=== PATIENT | male | born 1925 | race Caucasian/White ===

== ENCOUNTER 2016-10-10 08:10 | Inpatient (IN) | payer OTHER ==
--- NOTE | 2016-10-10 08:14 | PDOC ---
History of Present Illness - General Chief Complaint: Altered Mental Status Stated Complaint: FELL OUT OF BED, AMS Time Seen by Provider: 10/10/16 08:14 History Source: EMS, Old Records Exam Limitations: Clinical Condition, Dementia - History of Present Illness Initial Comments: 10/10/16 08:27 89-year-old male with history of dementia and cholangitis last year presents the emergency department by EMS after a witnessed applied down onto the floor from bed this morning. It is reported that the patient did not hit his head and had no head trauma. However, the patient appears to be altered per family and EMS. Further history from the patient is not obtainable secondary to the patient 's lethargy and altered mental status. The patient does not take anticoagulant therapy or antiplatelet therapy. Per the patient's , the patient has been coughing and has been feeling generalized weakness x 3 days. He also has not been eating well. Past History - Past Medical History Allergies/Adverse Reactions: Allergies Allergy/AdvReac Type Severity Reaction Status Date / Time No Known Allergies Allergy Unverified 10/22/15 09:54 Home Medications: Ambulatory Orders Cyanocobalamin/Folic Acid [Vitamin C21-Uztuo Acid Tablet] 1 each PO AM tablet 10/01/12 Meclizine HCl 25 mg PO PRN tablet 10/01/12 Ca Cmb No.1/Vit D3/B-6/FA/B12 [Vitamin D3 1,000 Unit Tablet] 1 each PO DAILY tablet 02/05/14 Cyanocobalamin [Vitamin B12 -] 1,000 mcg PO DAILY 10/22/15 Iron,Carbonyl/Vit C/Vit B12/FA [Iron 100 Plus Tablet] 325 mg PO DAILY 10/22/15 Anemia: Yes HTN: Yes Psychiatric Problems: (DEMENTIA) - Immunization History Immunization Up to Date: No - Psycho/Social/Smoking Cessation Hx Anxiety: No Suicidal Ideation: No Smoking History: Former smoker Have you smoked in the past 12 months: No Number of Cigarettes Smoked Daily: 0 If you are a former smoker, when did you quit?: 10y Hx Alcohol Use: No Drug/Substance Use Hx: No Substance Use Type: None Review of Systems - Review of Systems Able to Perform ROS?: No Comments:: 10/10/16 08:24 The patient states that everything is bothering him but is unable to elaborate. *Physical Exam - Physical Exam Comments: 10/10/16 08:20 GENERAL: Well developed, well nourished. Lethargic but arousable to verbal stimuli. No acute distress. HEENT: Normocephalic, atraumatic. PERRLA, EOMI. No conjunctival pallor. Sclera are non- icteric. Dry mucous membranes. Oropharynx is clear. NECK: Supple. Full ROM. No JVD. No lymphadenopathy. CARDIOVASCULAR: Regular rate and rhythm. No murmurs, rubs, or gallops. Distal pulses are 2+ and symmetric. PULMONARY: No evidence of respiratory distress. There are crackles at the left lung base. No wheezing, rales or rhonchi. ABDOMINAL: Soft. Non-tender. Non-distended. No rebound or guarding. No organomegaly. Normoactive bowel sounds. MUSCULOSKELETAL Normal range of motion at all joints. No bony deformities or tenderness. No CVA tenderness. There is o skin breakdown inthe decubitus region. EXTREMITIES: No cyanosis. No clubbing. No edema. No calf tenderness. SKIN: Warm and dry. Normal capillary refill. No rashes. No jaundice. NEUROLOGICAL: Awake but lethargic and oriented to person. Exam is incomplete secondary patient compliance/lethargy. PSYCHIATRIC: Unable to assess secondary to altered mental status/lethargy. ED Treatment Course - LABORATORY CBC & Chemistry Diagram: 10/10/16 08:15 10/10/16 08:15 Medical Decision Making - Medical Decision Making 10/10/16 08:24 89 y/o male with h/o cholangitis, dementia who presents to the ED by EMS s/p sliding off of the bed this am and AMS. He is lethargic, febrile to 101.3F and has crackles at the left lung base. DDx includes but is not limited to: PNA, influenza, UTI, sepsis, dehydration, electrolyte abnormality, toxic/metabolic derangement, ACS, intra-cranial process. Plan: 1. Labs 2. Brunson-culture 3. CXR 4. Urine 5. CT head 6. IVF for hydration 7. IV antibiotics 8. EKG 9. Observe and re-evaluate 10. The patient will likely require admission for IV antiibiotics and IVF hydration pending results of above mentioned studies/tests 10/10/16 09:48 Addendum: The labs were reviewed and are noted in the EMR. CT head and chest x- ray are negative. The labs are significant for a white blood cell count of 11.4. The urine has positive nitrites and leukoesterase. Will admit the patient to medicine monitored bed. *DC/Admit/Observation/Transfer Diagnosis at time of Disposition: Fever, Altered mental status, Urinary tract infection - Discharge Dispostion Condition at time of disposition: Stable Admit: Yes
[2016-10-10] MEDS ORDERED: SODIUM CHLORIDE 2,000 ML IV STA (08:15)
[2016-10-10] MEDS ORDERED: PIPERACILLIN/TAZOB 3.375 GM/50 ML PRE-DOCKED IV ONE (08:15)
[2016-10-10] MEDS ORDERED: ACETAMINOPHEN 1000 MG/100 ML VIAL (NON FORMULARY) IVPB ONE (08:16)
[2016-10-10] MEDS ORDERED: PIPERACILLIN/TAZOBACTAM 3.375 GM VIAL IVPB ONE (08:35)
[2016-10-10] MEDS ORDERED: ACETAMINOPHEN INJECTION 100 ML IVPB ONE (08:36)
[2016-10-10 09:01] LABS: ALBUMIN 2.9 g/dl (3.5-5.0); ALK PHOS 67 U/L (32-92); ANION GAP 6 (8-16); BILIRUBIN,TOTAL 1.3 mg/dl (0.2-1.0); CO2 25 mmol/L (22-28); CPK(DFH) 372 IU/L (38-174); CREATININE 1.1 mg/dl (0.6-1.3); GLUCOSE,RANDOM 139 mg/dl (74-106); MAGNESIUM 1.8 mg/dL (1.8-2.4); PHOSPHOROUS 2.7 mg/dl (2.5-4.6); SGOT/AST 34 U/L (10-42); SGPT/ALT 12 U/L (10-40); TOT PROT 5.8 g/dl (6.4-8.3)
[2016-10-10 09:18] LABS: TROPONIN I (DFP) < 0.03 ng/ml (0.03-0.50)
[2016-10-10 09:21] LABS: MCH 26.4 pg (25.7-33.7); MCHC 31.7 g/dl (32.0-35.9); MEAN CELL VOLUME 83.2 fl (80-96); MEAN PLT VOLUME 10.3 fl (7.5-11.1); PLATELET COUNT 190 K/MM3 (134-434); RDW 13.6 % (11.9-15.9); WHITE BLOOD COUNT 11.4 K/mm3 (4.0-10.0)
[2016-10-10 09:30] LABS: URINE APPEARANCE Slightly; URINE BILIRUBIN Negative (NEGATIVE); URINE BLOOD 1+ (NEGATIVE); URINE GLUCOSE (UA) Negative (NEGATIVE); URINE KETONE Trace (NEGATIVE); URINE LEUK ESTERASE 3+ (NEGATIVE); URINE NITRITE Positive (NEGATIVE); URINE PROTEIN 1+ (NEGATIVE); URINE UROBILINOGEN 1.0 E.U/dl (0.2-1.0)
[2016-10-10 09:31] LABS: URINE COLOR YELLOW
[2016-10-10] MEDS ORDERED: SODIUM CHLORIDE 1,000 ML IV ONE (10:38)
[2016-10-10 10:48] LABS: URINE BACTERIA FEW /hpf (NEGATIVE); URINE WBC 50-80 (3-5)
[2016-10-10] MEDS ORDERED: ACETAMINOPHEN 325 MG TABLET (FP) PO PRN (10:59)
--- NOTE | 2016-10-10 10:59 | HP ---
CHIEF COMPLAINT: fall PCP: Thang HISTORY OF PRESENT ILLNESS: patient is a 89 y/o male with a past medical history of dementia, hypertension, and AAA. patient has severe dementia and is unable to provide any history. patient resides with his at home. His reports altered mental status with generalized weakness for the past 3 days. Patient was ambulating independently at home tripped and was guided to the floor. became concerned because patient became increasingly lethargic and as a result sought evaluation in the emergency department. Patient was admitted to this hospital in October 2015 for ascending cholangitis and Escherichia coli bacteremia. ER course was notable for: (1) urinalysis positive nitrates +3 leukocytes (2)lactic acid 1.6 (3) WBC 11.4 Recent Travel: none PAST MEDICAL HISTORY: dementia, hypertension, AAA, ascending cholangitis Social History: resides at home Smoking: former smoker Alcohol: none Drugs: none Family History: noncontributory Allergies No Known Allergies Allergy (Unverified 10/22/15 09:54) HOME MEDICATIONS: Home Medications Medication Instructions Recorded Cyanocobalamin/Folic Acid [Vitamin 1 each PO AM tablet 10/01/12 X21-Zztdn Acid Tablet] Meclizine HCl 25 mg PO PRN tablet 10/01/12 Ca Cmb No.1/Vit D3/B-6/FA/B12 1 each PO DAILY tablet 02/05/14 [Vitamin D3 1,000 Unit Tablet] Cyanocobalamin [Vitamin B12 -] 1,000 mcg PO DAILY 10/22/15 Iron,Carbonyl/Vit C/Vit B12/FA 325 mg PO DAILY 10/22/15 [Iron 100 Plus Tablet] REVIEW OF SYSTEMS CONSTITUTIONAL: Presents: generalized weakness, malaise Absent: fever, chills, diaphoresis, loss of appetite, weight change HEENT: Absent: rhinorrhea, nasal congestion, throat pain, throat swelling, difficulty swallowing, mouth swelling, ear pain, eye pain, visual changes CARDIOVASCULAR: Absent: chest pain, syncope, palpitations, irregular heart rate, lightheadedness , peripheral edema RESPIRATORY: Absent: cough, shortness of breath, dyspnea with exertion, orthopnea, wheezing, stridor, hemoptysis GASTROINTESTINAL: Absent: abdominal pain, abdominal distension, nausea, vomiting, diarrhea, constipation, melena, hematochezia GENITOURINARY: Absent: dysuria, frequency, urgency, hesitancy, hematuria, flank pain, genital pain MUSCULOSKELETAL: Absent: myalgia, arthralgia, joint swelling, back pain, neck pain SKIN: Absent: rash, itching, pallor HEMATOLOGIC/IMMUNOLOGIC: Absent: easy bleeding, easy bruising, lymphadenopathy, frequent infections ENDOCRINE: Absent: unexplained weight gain, unexplained weight loss, heat intolerance, cold intolerance NEUROLOGIC: Absent: headache, focal weakness or paresthesias, dizziness, unsteady gait, seizure, mental status changes, bladder or bowel incontinence PSYCHIATRIC: Absent: anxiety, depression, suicidal or homicidal ideation, hallucinations. PHYSICAL EXAMINATION Vital Signs - 24 hr 10/10/16 10/10/16 10/10/16 08:11 08:25 09:17 Temperature 101.3 F H Pulse Rate 73 Pulse Rate [ 71 Left] Respiratory 24 19 Rate Blood Pressure 114/79 109/66 Blood Pressure 101/59 [Right Arm] O2 Sat by Pulse 97 97 Oximetry (%) 10/10/16 10/10/16 10:25 10:38 Temperature Pulse Rate Pulse Rate [ 71 Left] Respiratory 22 Rate Blood Pressure 109/66 Blood Pressure 97/57 [Right Arm] O2 Sat by Pulse 99 Oximetry (%) GENERAL: Awake, alert, agitated HEAD: Normal with no signs of trauma. EYES: Pupils equal, round and reactive to light, extraocular movements intact, sclera anicteric, conjunctiva clear. No lid lag. EARS, NOSE, THROAT: Ears normal, nares patent, oropharynx clear without exudates. Moist mucous membranes. NECK: Normal range of motion, supple without lymphadenopathy, JVD, or masses. LUNGS: Breath sounds equal, clear to auscultation bilaterally to apexes, diminished to bases. No wheezes, and no crackles. No accessory muscle use. HEART: Regular rate and rhythm, normal S1 and S2 without murmur, rub or gallop. ABDOMEN: Soft, nontender, not distended, normoactive bowel sounds, no guarding, no rebound, no masses. No hepatomegaly or splenomegaly. MUSCULOSKELETAL: Normal range of motion at all joints. No bony deformities or tenderness. No CVA tenderness. UPPER EXTREMITIES: 2+ pulses, warm, well-perfused. No cyanosis. No clubbing. No peripheral edema. LOWER EXTREMITIES: 2+ pulses, warm, well-perfused. No calf tenderness. No peripheral edema. NEUROLOGICAL: Cranial nerves II-XII intact. Normal speech. Normal gait. PSYCHIATRIC: Cooperative. Good eye contact. Appropriate mood and affect. SKIN: Warm, dry, normal turgor, no rashes or lesions noted, normal capillary refill. Laboratory Results - last 24 hr 10/10/16 10/10/16 10/10/16 08:15 08:15 08:15 WBC 11.4 H RBC 4.38 D Hgb 11.6 L D Hct 36.5 D MCV 83.2 D MCHC 31.7 L RDW 13.6 D Plt Count 190 MPV 10.3 Neutrophils % Y Lymphocytes % Y Sodium 140 Potassium 3.9 Chloride 109 H Carbon Dioxide 25 Anion Gap 6 L BUN 18 D Creatinine 1.1 Creat Clearance w eGFR > 60 POC Glucometer Random Glucose 139 H D Lactic Acid 1.664 Calcium 9.0 Phosphorus 2.7 Magnesium 1.8 Total Bilirubin 1.3 H D AST 34 D ALT 12 D Alkaline Phosphatase 67 D Creatine Kinase CK-MB (CK-2) CK-MB (CK-2) Rel Index Troponin I Total Protein 5.8 L Albumin 2.9 L D Lipase 37 Urine Color Urine Appearance Urine pH Ur Specific [place] Urine Protein Urine Glucose (UA) Urine Ketones Urine Blood Urine Nitrite Urine Bilirubin Urine Urobilinogen Ur Leukocyte Esterase Urine RBC Urine WBC Ur Epithelial Cells Urine Bacteria 10/10/16 10/10/16 10/10/16 08:15 08:15 08:34 WBC RBC Hgb Hct MCV MCHC RDW Plt Count MPV Neutrophils % Lymphocytes % Sodium Potassium Chloride Carbon Dioxide Anion Gap BUN Creatinine Creat Clearance w eGFR POC Glucometer [phone] Random Glucose Lactic Acid Calcium Phosphorus Magnesium Total Bilirubin AST ALT Alkaline Phosphatase Creatine Kinase 372 H D CK-MB (CK-2) 2.0 Cancelled CK-MB (CK-2) Rel Index 0.5 Troponin I < 0.03 L Total Protein Albumin Lipase Urine Color Urine Appearance Urine pH Ur Specific [place] Urine Protein Urine Glucose (UA) Urine Ketones Urine Blood Urine Nitrite Urine Bilirubin Urine Urobilinogen Ur Leukocyte Esterase Urine RBC Urine WBC Ur Epithelial Cells Urine Bacteria 10/10/16 09:00 WBC RBC Hgb Hct MCV MCHC RDW Plt Count MPV Neutrophils % Lymphocytes % Sodium Potassium Chloride Carbon Dioxide Anion Gap BUN Creatinine Creat Clearance w eGFR POC Glucometer Random Glucose Lactic Acid Calcium Phosphorus Magnesium Total Bilirubin AST ALT Alkaline Phosphatase Creatine Kinase CK-MB (CK-2) CK-MB (CK-2) Rel Index Troponin I Total Protein Albumin Lipase Urine Color Yellow Urine Appearance Slightly Urine pH 6.0 Ur Specific [place] 1.020 Urine Protein 1+ H Urine Glucose (UA) Negative Urine Ketones Trace Urine Blood 1+ H Urine Nitrite Positive Urine Bilirubin Negative Urine Urobilinogen 1.0 e.u/dl Ur Leukocyte Esterase 3+ H Urine RBC 5-10 Urine WBC 50-80 Ur Epithelial Cells 3-5 Urine Bacteria Few IMAGING chest xray, no infilitrates no effusions noted head ct: no acute pathology ekg, nsr, left axis deviation, right BBB ASSESSMENT/PLAN: F/E/N -soft diet - repeat electrolytes as needed PPX - heparin - zantac - oob - pt dispo: requires inpatient telemetry DNR Problem List - Problem (1) Altered mental status Assessment/Plan: - altered mental status due to metabolic encephalopathy secondary to sepsis - fall precautions Code(s): R41.82 - ALTERED MENTAL STATUS, UNSPECIFIED (2) Fever Assessment/Plan: - tmax 101.0, continue prn tylenol - follow blood and urine cultures - appreciate ID input (Hieu) Code(s): R50.9 - FEVER, UNSPECIFIED Qualifiers: Encounter type: initial encounter (3) UTI (urinary tract infection) Assessment/Plan: - continue zosyn, pending urine culture to narrow down antibiotics Code(s): N39.0 - URINARY TRACT INFECTION, SITE NOT SPECIFIED Qualifiers: Urinary tract infection type: site unspecified Hematuria presence: without hematuria Qualified Code(s): N39.0 - Urinary tract infection, site not specified (4) Anemia Assessment/Plan: - hgb 11 baseline 14, history of microcytic anemia in the past secondary to guiac + stool - no active bleeding at this time, repeat cbc in AM Code(s): D64.9 - ANEMIA, UNSPECIFIED Qualifiers: Anemia type: iron deficiency (5) Dementia Assessment/Plan: - fall precautions - continue risperdone and namenda Code(s): F03.90 - UNSPECIFIED DEMENTIA WITHOUT BEHAVIORAL DISTURBANCE Qualifiers: Dementia type: Alzheimer's disease Dementia behavioral disturbance: without behavioral disturbance (6) Hypertension Assessment/Plan: - hold bystolic due to hypotension - close b/p monitoring Code(s): I10 - ESSENTIAL (PRIMARY) HYPERTENSION (7) Sepsis Assessment/Plan: - likely secondary to urinary tract, dose of Zosyn given in the emergency department, pt has no known ALLERGIES, continue Zosyn, appreciate ID input for antibiotic clearance - pt received 3L of IVF in the ED, continue IVF d5ns w/20meq KCI @ 75ml/hr - lactic acid wnl monitor fever curve and WBC - Follow up urine and blood culture Code(s): A41.9 - SEPSIS, UNSPECIFIED ORGANISM Qualifiers: Sepsis type: sepsis due to unspecified organism Qualified Code(s): A41.9 - Sepsis, unspecified organism Visit type - Emergency Visit Emergency Visit: Yes ED Registration Date: 10/10/16 Care time: The patient presented to the Emergency Department on the above date and was hospitalized for further evaluation of their emergent condition. - New Patient This patient is new to me today: Yes Date on this admission: 10/10/16 - Critical Care Critical Care patient: Yes Total Critical Care Time (in minutes): 45 Critical Care Statement: The care of this patient involved high complexity decision making to prevent further life threatening deterioration of the patient 's condition and/or to evalute & treat vital organ system(s) failure or risk of failure.
[2016-10-10] MEDS ORDERED: D5-NS + 20 MEQ KCL - 1,000 ML IV SCH ×2 (11:00→14:22)
[2016-10-10] MEDS ORDERED: MECLIZINE HCL 25 MG TABLET (FP) PO SCH (11:00)
[2016-10-10] MEDS ORDERED: MECLIZINE HCL 25 MG TABLET (FP) PO PRN (12:19)
[2016-10-10] MEDS: MEMANTINE HCL 5 MG TABLET (UD) PO SCH ×2 (15:35→22:01)
[2016-10-10] MEDS: risperiDONE 1 MG TABLET (FP) PO SCH ×2 (15:35→22:01)
[2016-10-10 15:57] VITALS: BMI 31.3
--- NOTE | 2016-10-10 17:00 | CONSULT ---
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 mostly one word responses ( secondary to AMS) but can respond to complete sentences.) Oral Expression Ability: Yes: Mild Impairment (Secondary to AMS dementia) - Speech Production Dysarthria: Yes: Flaccid Apraxia: No Able to Make Needs Known: Yes: Mildly Impaired (requires verbal prompting in order to communicate wants and needs.) Intelligibility: Yes: WNL (Functional for his environment.) - Speech Characteristics Voice Loudness: Monoloudness (reduced, breathy vocal quality) Voice Pitch: Yes: Limited Variation (reduced pitch range) Voice Phonatory-based Quality: Yes: Hoarse, Breathy, Weak Speech Clarity: < 25% Nasal Resonance: Normal Articulation: Yes: Precise Rate of Speech: Intact Voice, Other Observations: Yes: Mouth Breathing, Progressively Weak Voice - Language/Auditory Comprehension Follows: Yes: 1 Stage Simple Commands (WFL), 2 Stage Simple Commands (impaired) Observation: Able to respond to yes/no queries: Yes, Yes/No Confusion: No, Comprehends Conversational Speech: Yes, Benefits from Slow Speech: Yes, Benefits from Repetiton: Yes, Benefits from Increased Volume of Speech: Yes - Language/Verbal Expression Able to Respond to Simple Queries: Yes: WNL Able to Communicate Wants and Needs: Yes: Moderately Impaired (Secondary to AMS) Functional Communication Status: Yes: Moderately Impaired (secondary to AMS) Aware of Errors: No Attempts to Correct Errors: No Use of Gestures: No Written Expression: not examined Oral Expression: WFL for simple responses Reading Comprehension: not examined Attention: Yes: Moderate Impairment - Memory/Perception penitentiary Memory: Yes: Moderately Impaired Short Term Memory: Yes: Moderately Impaired - Swallow Evaluation/Bedside Assessment Current Nutritional Intake: Dysphagia Minced, Honey Textured Liquids Oral Secretions: Yes: Dryness (Reduced secondary to mouth breathing.) Dentition: Yes: Edentulous (top and bottom.) Facial Symmetry at Rest: Symmetrical Facial Symmetry on Retraction: Symmetrical Facial Movement: Controlled Sensation: Normal Facial Comment: WFL for speech and swallowing purposes Jaw Position: Open at Rest Against Resistance Opening: Weak Against Resistance Closing: Weak Pucker Lips: Weak Smile: Weak Lips, Comment: reduced, open mouth posture at rest but WFL when a bolus is presented Lingual Movement: Reduced Tip Depression, Reduced Tip Elevation, Reduced Lt Lateralization, Reduced Rt Lateralization, Reduced Protrusion, Unable to Perform Lingual Speed of Movement: Reduced Lingual Movement Strgth Against Opposition: Reduced Lingual Movement Characteristics: Fasciculations Lingual Comment: overall weakness and reduced ROM present but WFL for speech and swallowing Soft Palate Description: Normal Color, High Arch Hard Palate Description: Normal Color, High Arch Gag Reflex: Weak Bite Reflex: Absent Velopharyngeal Movement: Reduced Elevation Laryngeal Elevation: Impaired (slow response time) Needs Assistance: Yes Rate of Intake: Slow/Holding Bolus Size: Small Labial Seal: WFL Chewing: Impaired (secondary to dental status.) Oral Prep Time: Increased A-P Transit: Impaired (slow transit time.) Pocketing: Present Bilaterally Timing of Swallow: Delayed (2-4 seconds average. Multiple swallows observed.) Odynophagia: Oral, Pharyngeal Coughing/Throat Clear: No Change in Voice: No Other Findings/Remarks: 89 year old male seen at bedside for swallow eval to r/o dysphagia. Pt presents with AMS Alzheimer dementia , fever, sepsis and UTI. Pt is verbal, A& Ox1 cooperative. Reportedly reduced appetite, and oral intake. Admitted to hospital for falls and AMS. Current diet is chopped and honey thicken liquids pending swallow eval. Pt given po trials of puree and mech soft solids with total assistance revealed reduce acceptance, adequate bolus control with reduced mastication and A-P transport. Pharyngeal swallows are delayed 2-4 second average with multiple swallows observed with bolus small bolus. No coughing or change in respiration observed. Pt given po trials of thin nectar and honey thicken liquids via cup revealed reduced acceptance, poor labial containment with thin liquids. Reduced A-P transport, pharyngeal swallows are delayed 2-4 second average with multiple swallows observed with bolus small bolus. No coughing or change in respiration observed. Recommendations - Speech Evaluation, Impression/Plan Impression: 89 yo male present with moderate heber-dysphagia secondary to AMS and dental status. No s/s of aspiration during this evaluation. Nursing Home Goals: tolerate the least restrictive diet with out s/s of aspiration Short Term Goals: tolerate pureed solids and nectar thicken diet with out s/s of aspiration - Dysphagia Impressions/Plan Swallowing Skills: Impaired Dysphagia Impressions: Moderate Impairment, Risk of Aspiration (secondary to delayed pharyngeal swallows.) *Silent aspiration: cannot be R/O at bedside Dysphagia Treatment Plan: Small Bites, Safe Rate, 1/2 tsp. at a time, Elevate HOB during feed, Other (keep pt alert during meals.) Dysphagia Evaluation Summary: Pt is able to tolerate puree, with honey and nectar thicken liquids via cup without s/s of aspiration at this time. Observe standard aspiration precautions. Crushed meds in applesauce or purees. Results given verbally to charge attendantMAIRA Edgar and to pcp via chart. - Recommendations Diet Consistency: Dysphagia Pureed Medication Administration: Crushed with applesauce Liquids: [place] Thick (via cup and/or spoon)
--- NOTE | 2016-10-10 17:05 | PN ---
Progress Note (short form) - Note Progress Note: ID Consult dictated UTI, possible sepsis secondary to UTI Toxic metabolic encephalopathy Pending c/s empiric zosyn
[2016-10-10] MEDS: PIPERACILLIN/TAZOB 3.375 GM 50 ML IVPB SCH (17:47)
[2016-10-10] MEDS ORDERED: PIPERACILLIN/TAZOB 3.375 GM 50 ML IVPB SCH (18:00)
--- NOTE | 2016-10-10 19:41 | CONS ---
DATE OF CONSULTATION: DATE OF DICTATION: 10/10/2016 INFECTIOUS DISEASE CONSULTATION HISTORY OF PRESENT ILLNESS: The patient is an 89-year-old male who is evaluated for sepsis. History was obtained from the chart as well as the patient's , who is present at the time of examination. She reports that patient has been becoming progressively more weak over the past 3 days. He had worsening anorexia, generalized weakness, and increased lethargy. She reports he had a near syncopal episode and fell, however did not sustain any head trauma or loss of consciousness. In addition, he has had a dry cough. She brought him to the emergency room where he was noted to have fever and an elevated white blood cell count. Cultures were obtained, and he was empirically treated with antibiotics. He is awake; however, he is confused. He offers no focal complaint. No reports of high-grade fever, shaking chills, labored breathing. No reports of vomiting or diarrhea. No complaints of dysuria. Patient was hospitalized 1 year ago at which time he was found to have a common bile duct stone and polymicrobial bacteremia. He required transfer to a tertiary care center where a biliary stent was placed. PAST MEDICAL HISTORY: Positive for dementia, hypertension, chronic anemia, history of choledocholithiasis, polymicrobial bacteremia in October 2015. ALLERGIES: No known allergies. MEDICATION: Meclizine, vitamin B12, calcium carbonate. SOCIAL HISTORY: Lives at home with his . He is a former smoker, nondrinker. SYSTEMS REVIEW: Neurologic: As per HPI. Cardiac: Negative chest pain or palpitations. Respiratory: Positive for dry cough. Gastrointestinal: Negative vomiting or diarrhea. Genitourinary: Negative for dysuria or hematuria. LABORATORY DATA: White count 11.4, hematocrit 36.5, platelet count 198, creatinine 1.1. Urinalysis: 50-80 white cells . Liver enzymes normal. Flu swab negative. Cultures pending. CAT scan of the head negative for acute infarct or bleed. Chest x-ray negative for acute infiltrate. PHYSICAL EXAMINATION: General: He is awake. However, he is slightly confused. Vital signs: Temperature 98.8, T-max 101.3, blood pressure 118/57, pulse 70 regular, respirations 20 per minute. HEENT: Sclerae anicteric. Dry mucous membranes. Cardiovascular: Heart sounds S1, S2. Respiratory: Lungs clear bilaterally. No rhonchi, rales, or wheezing. Abdomen: Soft. No tenderness elicited. No suprapubic or flank tenderness. Extremities: Positive for edema. Urine in [place] catheter appears concentrated. IMPRESSION: 1. Urinary tract infection/possible sepsis secondary to urinary tract infection. 2. Toxic metabolic encephalopathy superimposed on baseline dementia. 3. History of polymicrobial bacteremia secondary to biliary sepsis. Await culture results, empiric antibiotic coverage, pending sepsis workup with Zosyn 3.375 g IV piggyback every 8 hours, IV fluid hydration, supportive measures. Case discussed with patient's present at the time of the examination. Thank you for the kind referral. DUSTIN WEI M.D. [id number]
[2016-10-10] MEDS: HEPARIN NA (PORCINE) 5,000 UNITS/ML 1ML VIAL SQ SCH (22:01)
[2016-10-11] MEDS: PIPERACILLIN/TAZOB 3.375 GM 50 ML IVPB SCH ×3 (01:05→17:01)
[2016-10-11 07:55] LABS: BASOPHIL 0.1 % (0-2.0); EOSINOPHIL 3.2 % (0-4.5); MCH 26.4 pg (25.7-33.7); MCHC 31.7 g/dl (32.0-35.9); MEAN CELL VOLUME 83.3 fl (80-96); PLATELET COUNT 165 K/MM3 (134-434); WHITE BLOOD COUNT 7.8 K/mm3 (4.0-10.0)
[2016-10-11 08:14] LABS: ALBUMIN 2.2 g/dl (3.5-5.0); BILIRUBIN,TOTAL 1.3 mg/dl (0.2-1.0); CALCIUM 8.1 mg/dl (8.4-10.2); CREATININE 1.2 mg/dl (0.6-1.3); MAGNESIUM 1.7 mg/dL (1.8-2.4); PHOSPHOROUS 2.3 mg/dl (2.5-4.6); TOT PROT 4.5 g/dl (6.4-8.3)
[2016-10-11] MEDS ORDERED: MAGNESIUM SULF 50% (8.12 MEQ/2 ML-1 GM VIAL) IVPB ONE (09:00)
--- NOTE | 2016-10-11 09:10 | PN ---
Progress Note, Physician History of Present Illness: Awake, lethargic Offers no complaints Temps, WBC down Cultures pending - Current Medication List Current Medications: Active Medications Acetaminophen (Tylenol -) 650 mg PO Q4H PRN PRN Reason: FEVER Cyanocobalamin (Vitamin B12 -) 1,000 mcg PO DAILY [facility] Heparin Sodium (Porcine) (Heparin -) 5,000 unit SQ BID [facility] Last Admin: 10/10/16 22:01 Dose: 5,000 unit Piperacillin Sod/Tazobactam Sod (Zosyn 3.375gm Ivpb (Pre-Docked)) 50 mls @ 100 mls/hr IVPB Q8H-IV [facility] PRN Reason: Protocol Last Admin: 10/11/16 01:05 Dose: 100 mls/hr Potassium Phosphate 15 mm/ (Sodium Chloride) 255 mls @ 62.5 mls/hr IVPB ONCE ONE Stop: 10/11/16 13:34 Last Admin: 10/11/16 09:02 Dose: 62.5 mls/hr Lactobacillus Acidophilus (Bacid -) 1 tab PO DAILY [facility] Meclizine HCl (Antivert -) 25 mg PO Q6H PRN PRN Reason: VERTIGO Memantine (Namenda -) 5 mg PO BID [facility] Last Admin: 10/10/16 22:01 Dose: 5 mg Ranitidine HCl (Zantac -) 150 mg PO DAILY [facility] Risperidone (Risperdal -) 1 mg PO BID [facility] Last Admin: 10/10/16 22:01 Dose: 1 mg - Objective Vital Signs: Vital Signs Temperature 98.7 F 10/11/16 06:00 Pulse Rate 64 10/11/16 06:00 Respiratory Rate 19 10/11/16 06:00 Blood Pressure 129/68 10/11/16 06:00 O2 Sat by Pulse Oximetry (%) 93 L 10/11/16 06:00 Constitutional: Yes: No Distress Eyes: Yes: Conjunctiva Clear Cardiovascular: Yes: Regular Rate and Rhythm, S1, S2 Respiratory: Yes: CTA Bilaterally Gastrointestinal: Yes: Normal Bowel Sounds, Soft. No: Tenderness Edema: Yes Edema: LLE: 1+, RLE: 1+ Labs: CBC, BMP 10/11/16 07:00 10/11/16 07:00 Assessment/Plan UTI/Sepsis secondary to UTI Toxic metabolic encephalopathy Await c/s Continue zosyn
[2016-10-11] MEDS ORDERED: POTASSIUM PHOSPHATE 15 MM in SODIUM CHLORIDE 250 ML IVPB ONE (09:30)
[2016-10-11] MEDS: RANITIDINE HCL 150 MG TABLET (FP) PO SCH (10:24)
[2016-10-11] MEDS: CYANOCOBALAMIN 1,000 MCG TABLET (FP) PO SCH (10:24)
[2016-10-11] MEDS: LACTOBACILLUS ACIDOPHILUS 1 EACH TAB (FP) PO SCH (10:25)
[2016-10-11] MEDS: MEMANTINE HCL 5 MG TABLET (UD) PO SCH ×2 (10:25→21:59)
[2016-10-11] MEDS: risperiDONE 1 MG TABLET (FP) PO SCH ×2 (10:25→21:59)
[2016-10-11] MEDS: HEPARIN NA (PORCINE) 5,000 UNITS/ML 1ML VIAL SQ SCH ×2 (10:25→21:59)
--- NOTE | 2016-10-11 12:44 | PN ---
Physical Exam: SUBJECTIVE: Patient seen and examined, confused and appears comfortable, voices no complaints OBJECTIVE:patient is a 89 y/o male with a past medical history of dementia, hypertension, and AAA. patient was admitted from the emergency department for sepsis. Vital Signs Period Temp Pulse Resp BP Sys/Sarmiento Pulse Ox Last 24 Hr 97.7 F-98.8 F 59-74 19-20 118-138/57-73 93-96 GENERAL: The patient is awake, alert, in no acute distress. HEAD: Normal with no signs of trauma. EYES: PERRL, extraocular movements intact, sclera anicteric, conjunctiva clear. No ptosis. ENT: Ears normal, nares patent, oropharynx clear without exudates, moist mucous membranes. NECK: Trachea midline, full range of motion, supple. LUNGS: Breath sounds equal, clear to auscultation bilaterally to apexes diminished to bases, no wheezes, no crackles, no accessory muscle use. HEART: Regular rate and rhythm, S1, S2 without murmur, rub or gallop. ABDOMEN: Soft, nontender, nondistended, normoactive bowel sounds, no guarding, no rebound, no hepatosplenomegaly, no masses. : Bailon catheter draining. I'll urine EXTREMITIES: 2+ pulses, warm, well-perfused, no edema. NEUROLOGICAL: Cranial nerves II through XII grossly intact. Normal speech, gait not observed. PSYCH: Normal mood, normal affect. SKIN: Warm, dry, normal turgor, no rashes or lesions noted Laboratory Results - last 24 hr 10/10/16 10/11/16 10/11/16 16:45 07:00 07:00 WBC 7.8 D RBC 3.46 L D Hgb 9.1 L D Hct 28.8 L D MCV 83.3 MCHC 31.7 L RDW 14.0 Plt Count 165 MPV 10.0 Neutrophils % 84.0 H Lymphocytes % 6.9 L D Monocytes % 5.8 D Eosinophils % 3.2 D Basophils % 0.1 Sodium 140 Potassium 3.9 Chloride 115 H Carbon Dioxide 23 Anion Gap 2 L BUN 16 Creatinine 1.2 Creat Clearance w eGFR 57.01 POC Glucometer 113 Random Glucose 98 D Calcium 8.1 L Phosphorus 2.3 L Magnesium 1.7 L Total Bilirubin 1.3 H AST 24 D ALT 13 Alkaline Phosphatase 51 D Total Protein 4.5 L D Albumin 2.2 L D Active Medications Generic Name Dose Route Start Last Admin Trade Name Freq PRN Reason Stop Dose Admin Acetaminophen 650 mg 10/10/16 10:59 Tylenol - PO Q4H PRN FEVER Cyanocobalamin 1,000 mcg 10/11/16 10:00 10/11/16 10:24 Vitamin B12 - PO 1,000 mcg DAILY [facility] Administration Heparin Sodium (Porcine) 5,000 unit 10/10/16 22:00 10/11/16 10:25 Heparin - SQ 5,000 unit BID [facility] Administration Piperacillin Sod/Tazobactam Sod 50 mls @ 100 mls/hr 10/10/16 18:00 10/11/16 10: 26 Zosyn 3.375gm Ivpb (Pre-Docked) IVPB 100 mls/hr Q8H-IV [facility] Administration Protocol Potassium Phosphate 15 mm/ 255 mls @ 62.5 mls/hr 10/11/16 09:30 10/11/16 09:02 Sodium Chloride IVPB 10/11/16 13:34 62.5 mls/hr ONCE ONE Administration Lactobacillus Acidophilus 1 tab 10/11/16 10:00 10/11/16 10:25 Bacid - PO 1 tab DAILY [facility] Administration Meclizine HCl 25 mg 10/10/16 12:19 Antivert - PO Q6H PRN VERTIGO Memantine 5 mg 10/10/16 11:00 10/11/16 10:25 Namenda - PO 5 mg BID [facility] Administration Ranitidine HCl 150 mg 10/11/16 10:00 10/11/16 10:24 Zantac - PO 150 mg DAILY [facility] Administration Risperidone 1 mg 10/10/16 11:00 10/11/16 10:25 Risperdal - PO 1 mg BID [facility] Administration Microbiology 10/10/16 08:15 Blood - Peripheral Venous Blood Culture - Preliminary NO GROWTH OBTAINED AFTER 24 HOURS, INCUBATION TO CONTINUE FOR 4 DAYS. 10/10/16 08:15 Blood - Peripheral Venous Blood Culture - Preliminary NO GROWTH OBTAINED AFTER 24 HOURS, INCUBATION TO CONTINUE FOR 4 DAYS. 10/10/16 08:40 Nasopharyngeal Swab Influenza Types A,B Antigen (KETAN) - Final , negative 10/10/16 08:40 Nasopharyngeal Swab - Final IMAGING chest xray, no infilitrates no effusions noted head ct: no acute pathology ekg, nsr, left axis deviation, right BBB ASSESSMENT/PLAN: 1) ID: sepsis - patient afebrile, leukocytosis resolved. - Blood cultures negative to date pending urine culture. continue Zosyn awaiting final blood and urine cultures to narrow down antibiotics - appreciate ID input, Dr. 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, reports the patient appears closer to baseline today dementia - continue risperidone and namenda - continue fall precautions 4) heme: microcytic anemia, - hemoglobin 9 trending downward baseline 14 no active bleeding noted - pending stool guaiac and iron studies F/E/N -continue dysphagia pure diet with honey thickened liquids as per speech and swallow evaluation - repeat electrolytes as needed PPX - heparin - zantac - oob - pt dispo: requires inpatient telemetry-->lengthy conversation with Marquita Wilks , [facility] for short-term rehabilitation, consulted with social media editor JEVON yeung, awaiting bed availability DNR Problem List - Problems (1) Altered mental status Code(s): R41.82 - ALTERED MENTAL STATUS, UNSPECIFIED (2) Fever Code(s): R50.9 - FEVER, UNSPECIFIED Qualifiers: Encounter type: initial encounter (3) UTI (urinary tract infection) Code(s): N39.0 - URINARY TRACT INFECTION, SITE NOT SPECIFIED Qualifiers: Urinary tract infection type: site unspecified Hematuria presence: without hematuria Qualified Code(s): N39.0 - Urinary tract infection, site not specified (4) Anemia Code(s): D64.9 - ANEMIA, UNSPECIFIED Qualifiers: Anemia type: iron deficiency (5) Dementia Code(s): F03.90 - UNSPECIFIED DEMENTIA WITHOUT BEHAVIORAL DISTURBANCE Qualifiers: Dementia type: Alzheimer's disease Dementia behavioral disturbance: without behavioral disturbance (6) Hypertension Code(s): I10 - ESSENTIAL (PRIMARY) HYPERTENSION (7) Sepsis Code(s): A41.9 - SEPSIS, UNSPECIFIED ORGANISM Qualifiers: Sepsis type: sepsis due to unspecified organism Qualified Code(s): A41.9 - Sepsis, unspecified organism Visit type - Emergency Visit Emergency Visit: Yes ED Registration Date: 10/10/16 Care time: The patient presented to the Emergency Department on the above date and was hospitalized for further evaluation of their emergent condition. - New Patient This patient is new to me today: No - Critical Care Critical Care patient: No - Discharge Referral Referred to [facility] Med P.C.: No
--- NOTE | 2016-10-11 13:40 | EKG ---
Test Reason : Blood Pressure : / mmHG Vent. Rate : 064 BPM Atrial Rate : 064 BPM P-R Int : 148 ms QRS Dur : 132 ms QT Int : 466 ms P-R-T Axes : 028 -45 014 degrees QTc Int : 480 ms NORMAL SINUS RHYTHM RIGHT BUNDLE BRANCH BLOCK LEFT ANTERIOR FASCICULAR BLOCK BIFASCICULAR BLOCK ABNORMAL ECG NO PREVIOUS ECGS AVAILABLE Confirmed by JUMANA JUÁREZ MD ([id number]) on 10/11/2016 1:40:26 PM Referred By: MARCELINO Confirmed By:JUMANA JUÁREZ MD
[2016-10-12] MEDS: PIPERACILLIN/TAZOB 3.375 GM 50 ML IVPB SCH ×3 (01:03→17:57)
[2016-10-12 08:06] LABS: SERUM IRON 10 ug/dL (38-169); TOTAL IRON BINDING CAPACITY 221 ug/dL (250-450); UIBC 211 ug/dL (111-343)
[2016-10-12 09:11] LABS: BASOPHIL 0.4 % (0-2.0); EOSINOPHIL 8.2 % (0-4.5); MCH 26.4 pg (25.7-33.7); MCHC 32.1 g/dl (32.0-35.9); MEAN CELL VOLUME 82.3 fl (80-96); MEAN PLT VOLUME 10.4 fl (7.5-11.1); NEUTROPHILS 68.2 % (42.8-82.8); PLATELET COUNT 165 K/MM3 (134-434); RDW 13.6 % (11.9-15.9); WHITE BLOOD COUNT 4.3 K/mm3 (4.0-10.0)
[2016-10-12 09:26] LABS: ALBUMIN 2.1 g/dl (3.5-5.0); ALK PHOS 48 U/L (32-92); ANION GAP 3 (8-16); BILIRUBIN,TOTAL 0.9 mg/dl (0.2-1.0); CALCIUM 8.2 mg/dl (8.4-10.2); CO2 24 mmol/L (22-28); CREATININE 1.1 mg/dl (0.6-1.3); GLUCOSE,RANDOM 82 mg/dl (74-106); MAGNESIUM 1.7 mg/dL (1.8-2.4); PHOSPHOROUS 2.5 mg/dl (2.5-4.6); SGOT/AST 17 U/L (10-42); SGPT/ALT 13 U/L (10-40); TOT PROT 4.6 g/dl (6.4-8.3)
[2016-10-12] MEDS ORDERED: MAGNESIUM SULFATE 2 GM in SODIUM CHLORIDE 100 ML IVPB ONE (09:51)
[2016-10-12] MEDS ORDERED: NEBIVOLOL 10 MG TABLET (FP) PO SCH (10:00)
[2016-10-12] MEDS: MEMANTINE HCL 5 MG TABLET (UD) PO SCH ×2 (10:01→22:02)
[2016-10-12] MEDS: LACTOBACILLUS ACIDOPHILUS 1 EACH TAB (FP) PO SCH (10:01)
[2016-10-12] MEDS: FERROUS SO4 325 MG TABLET (FP) PO SCH ×2 (10:02→22:02)
[2016-10-12] MEDS: risperiDONE 1 MG TABLET (FP) PO SCH (10:02)
--- NOTE | 2016-10-12 10:02 | PN ---
Progress Note, Physician History of Present Illness: OOB in chair More responsive No complaints Temps, WBC improved - Current Medication List Current Medications: Active Medications Acetaminophen (Tylenol -) 650 mg PO Q4H PRN PRN Reason: FEVER Cyanocobalamin (Vitamin B12 -) 1,000 mcg PO DAILY [facility] Last Admin: 10/11/16 10:24 Dose: 1,000 mcg Ferrous Sulfate (Feosol -) 325 mg PO BID [facility] Heparin Sodium (Porcine) (Heparin -) 5,000 unit SQ BID [facility] Last Admin: 10/11/16 21:59 Dose: 5,000 unit Piperacillin Sod/Tazobactam Sod (Zosyn 3.375gm Ivpb (Pre-Docked)) 50 mls @ 100 mls/hr IVPB Q8H-IV [place] PRN Reason: Protocol Last Admin: 10/12/16 01:03 Dose: 100 mls/hr Lactobacillus Acidophilus (Bacid -) 1 tab PO DAILY [facility] Last Admin: 10/11/16 10:25 Dose: 1 tab Magnesium Sulfate (Magnesium Sulfate) 2 gm IVPB ONCE ONE Stop: 10/12/16 10:16 Meclizine HCl (Antivert -) 25 mg PO Q6H PRN PRN Reason: VERTIGO Memantine (Namenda -) 5 mg PO BID [facility] Last Admin: 10/11/16 21:59 Dose: 5 mg Nebivolol (Bystolic -) 10 mg PO DAILY [facility] Ranitidine HCl (Zantac -) 150 mg PO DAILY [facility] Last Admin: 10/11/16 10:24 Dose: 150 mg Risperidone (Risperdal -) 1 mg PO BID [facility] Last Admin: 10/11/16 21:59 Dose: 1 mg - Objective Vital Signs: Vital Signs Temperature 98.8 F 10/12/16 06:00 Pulse Rate 69 10/12/16 06:00 Respiratory Rate 18 10/12/16 07:55 Blood Pressure 136/64 10/12/16 06:00 O2 Sat by Pulse Oximetry (%) 96 10/12/16 07:55 Constitutional: Yes: No Distress Eyes: Yes: Conjunctiva Clear Cardiovascular: Yes: Regular Rate and Rhythm Respiratory: Yes: Rhonchi Gastrointestinal: Yes: Normal Bowel Sounds, Soft. No: Tenderness Edema: No Labs: CBC, BMP 10/12/16 07:00 10/12/16 07:00 Assessment/Plan UTI/Sepsis secondary to UTI Toxic metabolic encephalopathy Await c/s Continue zosyn
[2016-10-12] MEDS: RANITIDINE HCL 150 MG TABLET (FP) PO SCH (10:07)
[2016-10-12] MEDS: CYANOCOBALAMIN 1,000 MCG TABLET (FP) PO SCH (10:07)
[2016-10-12] MEDS ORDERED: MAGNESIUM SULF 50% (8.12 MEQ/2 ML-1 GM VIAL) IVPB ONE (10:15)
[2016-10-12] MEDS ORDERED: PT OWN MED DRAWER 7, Y5N ONE (10:59)
[2016-10-12] MEDS: HEPARIN NA (PORCINE) 5,000 UNITS/ML 1ML VIAL SQ SCH ×2 (11:10→22:02)
--- NOTE | 2016-10-12 13:32 | PN ---
[id number] OBJECTIVE:patient is a 89 y/o male with a past medical history of dementia, hypertension, and AAA. patient was admitted from the emergency department for sepsis. Vital Signs Period Temp Pulse Resp BP Sys/Sarmiento Pulse Ox Last 24 Hr 97.7 F-98.8 F 57-69 18-20 110-136/47-65 95-96 physical examination GENERAL: The patient is awake, alert, in no acute distress. HEAD: Normal with no signs of trauma. EYES: PERRL, extraocular movements intact, sclera anicteric, conjunctiva clear. No ptosis. ENT: Ears normal, nares patent, oropharynx clear without exudates, moist mucous membranes. NECK: Trachea midline, full range of motion, supple. LUNGS: Breath sounds equal, clear to auscultation bilaterally to apexes diminished to bases, no wheezes, no crackles, no accessory muscle use. HEART: Regular rate and rhythm, S1, S2 without murmur, rub or gallop. ABDOMEN: Soft, nontender, nondistended, normoactive bowel sounds, no guarding, no rebound, no hepatosplenomegaly, no masses. EXTREMITIES: 2+ pulses, warm, well-perfused, no edema. NEUROLOGICAL: Cranial nerves II through XII grossly intact. Normal speech, gait not observed. PSYCH: Normal mood, normal affect. SKIN: Warm, dry, normal turgor, no rashes or lesions noted Laboratory Results - last 24 hr 10/11/16 10/11/16 10/11/16 Unknown Unknown Unknown WBC RBC Hgb Hct MCV MCHC RDW Plt Count MPV Neutrophils % Lymphocytes % Monocytes % Eosinophils % Basophils % Retic Count 1.22 D Sodium Potassium Chloride Carbon Dioxide Anion Gap BUN Creatinine Creat Clearance w eGFR Random Glucose Calcium Phosphorus Magnesium Iron 10 L TIBC 221 L Iron Saturation 5 L Ferritin 60.617 Total Bilirubin AST ALT Alkaline Phosphatase Total Protein Albumin 10/12/16 10/12/16 07:00 07:00 WBC 4.3 D RBC 3.52 L Hgb 9.3 L Hct 29.0 L MCV 82.3 MCHC 32.1 RDW 13.6 Plt Count 165 MPV 10.4 Neutrophils % 68.2 Lymphocytes % 16.1 D Monocytes % 7.1 Eosinophils % 8.2 H D Basophils % 0.4 D Retic Count Sodium 138 Potassium 3.9 Chloride 111 H Carbon Dioxide 24 Anion Gap 3 L BUN 11 D Creatinine 1.1 Creat Clearance w eGFR > 60 Random Glucose 82 Calcium 8.2 L Phosphorus 2.5 Magnesium 1.7 L Iron TIBC Iron Saturation Ferritin Total Bilirubin 0.9 D AST 17 D ALT 13 Alkaline Phosphatase 48 Total Protein 4.6 L Albumin 2.1 L Active Medications Generic Name Dose Route Start Last Admin Trade Name Freq PRN Reason Stop Dose Admin Acetaminophen 650 mg 10/10/16 10:59 10/12/16 11:01 Tylenol - PO 650 mg Q4H PRN Administration FEVER Cyanocobalamin 1,000 mcg 10/11/16 10:00 10/12/16 10:07 Vitamin B12 - PO 1,000 mcg DAILY [facility] Administration Ferrous Sulfate 325 mg 10/12/16 10:00 10/12/16 10:02 Feosol - PO 325 mg BID [facility] Administration Heparin Sodium (Porcine) 5,000 unit 10/10/16 22:00 10/12/16 11:10 Heparin - SQ 5,000 unit BID [facility] Administration Piperacillin Sod/Tazobactam Sod 50 mls @ 100 mls/hr 10/10/16 18:00 10/12/16 10: 10 Zosyn 3.375gm Ivpb (Pre-Docked) IVPB 100 mls/hr Q8H-IV [facility] Administration Protocol Lactobacillus Acidophilus 1 tab 10/11/16 10:00 10/12/16 10:01 Bacid - PO 1 tab DAILY [facility] Administration Meclizine HCl 25 mg 10/10/16 12:19 Antivert - PO Q6H PRN VERTIGO Memantine 5 mg 10/10/16 11:00 10/12/16 10:01 Namenda - PO 5 mg BID [facility] Administration Nebivolol 10 mg 10/12/16 10:00 10/12/16 10:02 Bystolic - PO 10 mg DAILY [facility] Administration Ranitidine HCl 150 mg 10/11/16 10:00 10/12/16 10:07 Zantac - PO 150 mg DAILY [facility] Administration Risperidone 1 mg 10/10/16 11:00 10/12/16 10:02 Risperdal - PO 1 mg BID [facility] Administration Microbiology 10/10/16 09:00 Urine - Urine Bailon Urine Culture - Preliminary Staphylococcus Coagulase Neg 10/10/16 08:15 Blood - Peripheral Venous Blood Culture - Preliminary NO GROWTH OBTAINED AFTER 48 HOURS, INCUBATION TO CONTINUE FOR 3 DAYS. 10/10/16 08:15 Blood - Peripheral Venous Blood Culture - Preliminary NO GROWTH OBTAINED AFTER 48 HOURS, INCUBATION TO CONTINUE FOR 3 DAYS. 10/10/16 08:40 Nasopharyngeal Swab Respiratory Virus Panel - Preliminary 10/10/16 08:40 Nasopharyngeal Swab Influenza Types A,B Antigen (KETAN) - Final ,negative 10/10/16 08:40 Nasopharyngeal Swab - Final IMAGING chest xray, no infilitrates no effusions noted head ct: no acute pathology ekg, nsr, left axis deviation, right BBB ASSESSMENT/PLAN: 1) ID: sepsis - patient afebrile, no leukocytosis - Blood cultures negative to date urine culture preliminary staph coag, pending final, continue Zosyn awaiting final blood and urine cultures to narrow down antibiotics - appreciate ID input, Dr. 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, reports the patient appears closer to baseline today dementia - continue risperidone and namenda - continue fall precautions 4) heme: microcytic anemia, - hemoglobin 9 stabilized, iron studies reviewed likely anemia of chronic disease start iron supplements - pending stool guaiac F/E/N -continue dysphagia pure diet with honey thickened liquids as per speech and swallow evaluation - replete electrolytes as needed PPX - heparin - zantac - oob - pt dispo: d/c tele, requires inpatient admission, pending final cultures, can d/ c tomm, lengthy conversation with Marquita Wilks, requesting [facility] for short-term rehabilitation, consulted with oncology social worker JEVON yeung, awaiting bed availability Problem List - Problems (1) Altered mental status Code(s): R41.82 - ALTERED MENTAL STATUS, UNSPECIFIED (2) Fever Code(s): R50.9 - FEVER, UNSPECIFIED Qualifiers: Encounter type: initial encounter (3) UTI (urinary tract infection) Code(s): N39.0 - URINARY TRACT INFECTION, SITE NOT SPECIFIED Qualifiers: Urinary tract infection type: site unspecified Hematuria presence: without hematuria Qualified Code(s): N39.0 - Urinary tract infection, site not specified (4) Anemia Code(s): D64.9 - ANEMIA, UNSPECIFIED Qualifiers: Anemia type: iron deficiency (5) Dementia Code(s): F03.90 - UNSPECIFIED DEMENTIA WITHOUT BEHAVIORAL DISTURBANCE Qualifiers: Dementia type: Alzheimer's disease Dementia behavioral disturbance: without behavioral disturbance (6) Hypertension Code(s): I10 - ESSENTIAL (PRIMARY) HYPERTENSION (7) Sepsis Code(s): A41.9 - SEPSIS, UNSPECIFIED ORGANISM Qualifiers: Sepsis type: sepsis due to unspecified organism Qualified Code(s): A41.9 - Sepsis, unspecified organism Visit type - Emergency Visit Emergency Visit: Yes ED Registration Date: 10/10/16 Care time: The patient presented to the Emergency Department on the above date and was hospitalized for further evaluation of their emergent condition. - New Patient This patient is new to me today: No - Critical Care Critical Care patient: No - Discharge Referral Referred to [facility] Med P.C.: No
--- NOTE | 2016-10-12 17:36 | ED.PROV ---
Physicial Exam I saw and examined the patient. - Vital Signs Last Vital Signs Temp Pulse Resp BP Pulse Ox 97.5 F L 42 L 21 110/50 100 10/12/16 14:15 10/12/16 17:07 10/12/16 17:07 10/12/16 17:07 10/12/16 14:15 10/12/16 17:32 - Physical Exam Reason for Response: 10/12/16 17:32 I was called to evaluate this patient due to bradycardia Per patient's , pt had no specific complaints He has been sleeping Pt noted to have HR ranging from 20s - 50s The patient is somnolent but responsive to painful stimuli Regular Very bradycardiac 10/12/16 17:[address] Dawn Covering practitioner will be contacted Orders placed for CMP, Trop, EKG
[2016-10-12 18:11] LABS: MCH 26.4 pg (25.7-33.7); MCHC 31.8 g/dl (32.0-35.9); MEAN CELL VOLUME 83.1 fl (80-96); MEAN PLT VOLUME 9.8 fl (7.5-11.1); PLATELET COUNT 180 K/MM3 (134-434); RDW 13.9 % (11.9-15.9); WHITE BLOOD COUNT 4.4 K/mm3 (4.0-10.0)
[2016-10-12 18:13] LABS: CPK(DFH) 77 IU/L (38-174)
--- NOTE | 2016-10-12 18:27 | HOSP ---
Subjective - Review of Symptoms Events since last encounter: Spoke to MAIRA Hernández. Patient awake, alert, HR in 60s. Advised to hold beta ni and Risperdal for now. Physical Examination Vital Signs: Vital Signs Temperature 97.5 F L 10/12/16 14:15 Pulse Rate 42 L 10/12/16 17:07 Respiratory Rate 21 10/12/16 17:07 Blood Pressure 110/50 10/12/16 17:07 O2 Sat by Pulse Oximetry (%) 100 10/12/16 14:15 Labs: CBC, BMP 10/12/16 17:20 10/12/16 07:00
[2016-10-12 18:33] LABS: TROPONIN I (DFP) < 0.03 ng/ml (0.03-0.50)
[2016-10-12 22:49] VITALS: PULSE 57
[2016-10-13] MEDS: PIPERACILLIN/TAZOB 3.375 GM 50 ML IVPB SCH (01:22)
[2016-10-13 05:24] VITALS: BP 146/68; TEMP 98.1
--- NOTE | 2016-10-13 09:39 | PN ---
Progress Note, Physician History of Present Illness: OOB in chair More alert No complaints Afebrile - Current Medication List Current Medications: Active Medications Acetaminophen (Tylenol -) 650 mg PO Q4H PRN PRN Reason: FEVER Last Admin: 10/12/16 11:01 Dose: 650 mg Cyanocobalamin (Vitamin B12 -) 1,000 mcg PO DAILY [facility] Last Admin: 10/12/16 10:07 Dose: 1,000 mcg Ferrous Sulfate (Feosol -) 325 mg PO BID [facility] Last Admin: 10/12/16 22:02 Dose: 325 mg Heparin Sodium (Porcine) (Heparin -) 5,000 unit SQ BID [facility] Last Admin: 10/12/16 22:02 Dose: 5,000 unit Piperacillin Sod/Tazobactam Sod (Zosyn 3.375gm Ivpb (Pre-Docked)) 50 mls @ 100 mls/hr IVPB Q8H-IV [facility] PRN Reason: Protocol Last Admin: 10/13/16 01:22 Dose: 100 mls/hr Lactobacillus Acidophilus (Bacid -) 1 tab PO DAILY [facility] Last Admin: 10/12/16 10:01 Dose: 1 tab Meclizine HCl (Antivert -) 25 mg PO Q6H PRN PRN Reason: VERTIGO Memantine (Namenda -) 5 mg PO BID [facility] Last Admin: 10/12/16 22:02 Dose: 5 mg Ranitidine HCl (Zantac -) 150 mg PO DAILY [facility] Last Admin: 10/12/16 10:07 Dose: 150 mg - Objective Vital Signs: Vital Signs Temperature 98.1 F 10/13/16 05:23 Pulse Rate 57 L 10/13/16 05:23 Respiratory Rate 19 10/13/16 08:09 Blood Pressure 146/68 10/13/16 05:23 O2 Sat by Pulse Oximetry (%) 96 10/13/16 08:09 Constitutional: Yes: No Distress Eyes: Yes: Conjunctiva Clear HENT: Yes: Atraumatic Cardiovascular: Yes: Regular Rate and Rhythm, S1, S2 Respiratory: Yes: CTA Bilaterally Gastrointestinal: Yes: Normal Bowel Sounds, Soft. No: Tenderness Edema: Yes Edema: LLE: 1+, RLE: 1+ Labs: CBC, BMP 10/12/16 17:20 10/12/16 07:00 Assessment/Plan UTI/Sepsis secondary to UTI improved Toxic metabolic encephalopathy improved Discontinue zosyn Substitute Augmentin 875mg po bid x3d
[2016-10-13] MEDS: CYANOCOBALAMIN 1,000 MCG TABLET (FP) PO SCH (09:51)
[2016-10-13] MEDS: RANITIDINE HCL 150 MG TABLET (FP) PO SCH (09:51)
[2016-10-13] MEDS: MEMANTINE HCL 5 MG TABLET (UD) PO SCH (09:51)
[2016-10-13] MEDS: FERROUS SO4 325 MG TABLET (FP) PO SCH (09:51)
[2016-10-13] MEDS: HEPARIN NA (PORCINE) 5,000 UNITS/ML 1ML VIAL SQ SCH (09:51)
[2016-10-13] MEDS: LACTOBACILLUS ACIDOPHILUS 1 EACH TAB (FP) PO SCH (09:51)
--- NOTE | 2016-10-13 12:21 | EKG ---
Test Reason : Blood Pressure : / mmHG Vent. Rate : 057 BPM Atrial Rate : 057 BPM P-R Int : 162 ms QRS Dur : 110 ms QT Int : 502 ms P-R-T Axes : 020 -24 -23 degrees QTc Int : 488 ms SINUS BRADYCARDIA PROLONGED QT ABNORMAL ECG WHEN COMPARED WITH ECG OF 10-OCT-2016 08:38, (RBBB AND LEFT ANTERIOR FASCICULAR BLOCK) IS NO LONGER PRESENT Confirmed by AJITH VELASQUEZ MD ([id number]) on 10/13/2016 12:21:04 PM Referred By: MD HURLEY Confirmed By:AJITH VELASQUEZ MD
[2016-10-13] MEDS ORDERED: AMOX TR/POT CLAV 875MG/125MG TABLETS (FP) PO SCH (17:30)
--- NOTE | 2016-10-18 07:35 | DS ---
Physical Exam: SUBJECTIVE: Patient seen and examined, confused appears comfortable. OBJECTIVE: patient is a 89 y/o male with a past medical history of dementia, hypertension, and AAA. patient has severe dementia and is unable to provide any history. patient resides with his at home. His reports altered mental status with generalized weakness for the past 3 days. Patient was ambulating independently at home tripped and was guided to the floor. became concerned because patient became increasingly lethargic and as a result sought evaluation in the emergency department. Patient was admitted to this hospital in October 2015 for ascending cholangitis and Escherichia coli bacteremia. ER course was notable for: (1) urinalysis positive nitrates +3 leukocytes (2)lactic acid 1.6 (3) WBC 11.4 PHYSICAL EXAM GENERAL: The patient is awake, alert, in no acute distress. HEAD: Normal with no signs of trauma. EYES: PERRL, extraocular movements intact, sclera anicteric, conjunctiva clear. No ptosis. ENT: Ears normal, nares patent, oropharynx clear without exudates, moist mucous membranes. NECK: Trachea midline, full range of motion, supple. LUNGS: Breath sounds equal, clear to auscultation bilaterally to apexes diminished to bases, no wheezes, no crackles, no accessory muscle use. HEART: Regular rate and rhythm, S1, S2 without murmur, rub or gallop. ABDOMEN: Soft, nontender, nondistended, normoactive bowel sounds, no guarding, no rebound, no hepatosplenomegaly, no masses. EXTREMITIES: 2+ pulses, warm, well-perfused, no edema. NEUROLOGICAL: Cranial nerves II through XII grossly intact. Normal speech, gait not observed. PSYCH: Normal mood, normal affect. SKIN: Warm, dry, normal turgor, no rashes or lesions noted CBC WBC 4.4 K/mm3 (4.0-10.0) 10/12/16 17:20 RBC 3.53 M/mm3 (4.00-5.60) L 10/12/16 17:20 Hgb 9.3 GM/dl (11.7-16.9) L 10/12/16 17:20 Hct 29.3 % (35.4-49) L 10/12/16 17:20 MCV 83.1 fl (80-96) 10/12/16 17:20 MCHC 31.8 g/dl (32.0-35.9) L 10/12/16 17:20 RDW 13.9 % (11.9-15.9) 10/12/16 17:20 Plt Count 180 K/MM3 (134-434) 10/12/16 17:20 MPV 9.8 fl (7.5-11.1) 10/12/16 17:20 Neutrophils % 68.2 % (42.8-82.8) 10/12/16 07:00 Lymphocytes % 16.1 % (8-40) D 10/12/16 07:00 Monocytes % 7.1 % (3.8-10.2) 10/12/16 07:00 Eosinophils % 8.2 % (0-4.5) H D 10/12/16 07:00 Basophils % 0.4 % (0-2.0) D 10/12/16 07:00 Band Neutrophils 2.0 % (0-10) D 10/10/16 08:15 Retic Count 1.22 % (0.5-1.5) D 10/11/16 Unknown CMP Sodium 138 mmol/L (136-145) 10/12/16 07:00 Potassium 3.9 mmol/L (3.5-5.1) 10/12/16 07:00 Chloride 111 mmol/L (98-107) H 10/12/16 07:00 Carbon Dioxide 24 mmol/L (22-28) 10/12/16 07:00 Anion Gap 3 (8-16) L 10/12/16 07:00 BUN 11 mg/dl (7-18) D 10/12/16 07:00 Creatinine 1.1 mg/dl (0.6-1.3) 10/12/16 07:00 Creat Clearance w eGFR > 60 (>60) 10/12/16 07:00 POC Glucometer 113 UNITS (()) 10/10/16 16:45 Random Glucose 82 mg/dl (74-106) 10/12/16 07:00 Lactic Acid 1.664 mmol/L (0.4-2.0) 10/10/16 08:15 Calcium 8.2 mg/dl (8.4-10.2) L 10/12/16 07:00 Phosphorus 2.5 mg/dl (2.5-4.6) 10/12/16 07:00 Magnesium 2.1 mg/dL (1.8-2.4) D 10/12/16 17:20 Iron 10 ug/dL (38-169) L 10/11/16 Unknown TIBC 221 ug/dL (250-450) L 10/11/16 Unknown Iron Saturation 5 % (15-55) L 10/11/16 Unknown Ferritin 60.617 ng/ml (16.4-293.9) 10/11/16 Unknown Total Bilirubin 0.9 mg/dl (0.2-1.0) D 10/12/16 07:00 AST 17 U/L (10-42) D 10/12/16 07:00 ALT 13 U/L (10-40) 10/12/16 07:00 Alkaline Phosphatase 48 U/L (32-92) 10/12/16 07:00 Creatine Kinase 77 IU/L (38-174) 10/12/16 17:20 CK-MB (CK-2) 2.0 ng/ml (0.3-4.0) 10/10/16 08:15 CK-MB (CK-2) Rel Index 0.5 % (0.0-5.0) 10/10/16 08:15 Troponin I < 0.03 ng/ml (0.03-0.50) L 10/12/16 17:20 Total Protein 4.6 g/dl (6.4-8.3) L 10/12/16 07:00 Albumin 2.1 g/dl (3.5-5.0) L 10/12/16 07:00 Lipase 37 U/L (22-51) 10/10/16 08:15 Microbiology 10/10/16 09:00 Urine - Urine [place] Urine Culture - Preliminary Staphylococcus Coagulase Neg 10/10/16 08:15 Blood - Peripheral Venous Blood Culture - Preliminary NO GROWTH OBTAINED AFTER 48 HOURS, INCUBATION TO CONTINUE FOR 3 DAYS. 10/10/16 08:15 Blood - Peripheral Venous Blood Culture - Preliminary NO GROWTH OBTAINED AFTER 48 HOURS, INCUBATION TO CONTINUE FOR 3 DAYS. 10/10/16 08:40 Nasopharyngeal Swab Respiratory Virus Panel - Preliminary 10/10/16 08:40 Nasopharyngeal Swab Influenza Types A,B Antigen (KETAN) - Final ,negative 10/10/16 08:40 Nasopharyngeal Swab - Final IMAGING chest xray, no infilitrates no effusions noted head ct: no acute pathology ekg, nsr, left axis deviation, right BBB HOSPITAL COURSE: Patient was admitted from the emergency department for sepsis. he was noted to febrile upon arrival to the emergency department with leukocytosis. patient is afebrile and leukocytosis resolved. Blood cultures negative to date urine culture preliminary staph coag, pending final. Patient was treated with Zosyn throughout hospitalization. Blood cultures are NTD. Dr Hagen, ID physician was consulted and followed. patient has a past medical history of hypertension. Bystolic was held for 48 hours due to sepsis. Bystolic was restarted on hospital day 2, and b/p remained at goal. Patient was noted to have toxic encephalopathy, likely secondary to sepsis, reports the patient appears closer to baseline today. risperidone and namenda was continued throughout hospitalization. fall precautions was implemented. he was noted to have microcytic anemia. hemoglobin 9 stabilized, iron studies reviewed likely anemia of chronic disease patient was started on iron supplements. He was evaluated by the speech and swallow pathologist and advised to start patient on dysphagia pure diet with honey thickened liquids as per speech and swallow evaluation. Date of Admission:10/10/16 Date of Discharge: 10/18/16 Minutes to complete discharge: 45 Discharge Summary Reason For Visit: UROSEPSIS Condition: Stable - Instructions Diet, Activity, Other Instructions: please continue the antibiotics as prescribed continue dysphagic puree diet with honey thickened liquids Return to the emergency department immediately with ANY new, persistent or worsening symptoms. You MUST call and follow up with your doctor tomorrow. Please make sure your doctor reviews the results of your hospital stay. Referrals: Fahad Desir MD [Staff Physician] - Disposition: [facility] - Home Medications Comprehensive Discharge Medication List: Ambulatory Orders RX: Cyanocobalamin/Folic Acid [Vitamin A54-Mdndm Acid Tablet] 1 each PO AM tablet 10/01/12 RX: Meclizine HCl 25 mg PO PRN tablet 10/01/12 RX: Ca Cmb No.1/Vit D3/B-6/FA/B12 [Vitamin D3 1,000 Unit Tablet] 1 each PO DAILY tablet 02/05/14 RX: Cyanocobalamin [Vitamin B12 -] 1,000 mcg PO DAILY 10/22/15 RX: Iron,Carbonyl/Vit C/Vit B12/FA [Iron 100 Plus Tablet] 325 mg PO DAILY RX: Amox-Tr/K Cl [Augmentin 875-125mg Tablet -] 1 tab PO BID@0800,1730 #6 tablet 10/13/16 RX: Lactobacillus Acidophilus [Bacid -] 1 tab PO DAILY tab 10/13/16 Problem List - Problems (1) Altered mental status Code(s): R41.82 - ALTERED MENTAL STATUS, UNSPECIFIED (2) Fever Code(s): R50.9 - FEVER, UNSPECIFIED Qualifiers: Encounter type: initial encounter (3) UTI (urinary tract infection) Code(s): N39.0 - URINARY TRACT INFECTION, SITE NOT SPECIFIED Qualifiers: Urinary tract infection type: site unspecified Hematuria presence: without hematuria Qualified Code(s): N39.0 - Urinary tract infection, site not specified (4) Anemia Code(s): D64.9 - ANEMIA, UNSPECIFIED Qualifiers: Anemia type: iron deficiency (5) Dementia Code(s): F03.90 - UNSPECIFIED DEMENTIA WITHOUT BEHAVIORAL DISTURBANCE Qualifiers: Dementia type: Alzheimer's disease Dementia behavioral disturbance: without behavioral disturbance (6) Hypertension Code(s): I10 - ESSENTIAL (PRIMARY) HYPERTENSION (7) Sepsis Code(s): A41.9 - SEPSIS, UNSPECIFIED ORGANISM Qualifiers: Sepsis type: sepsis due to unspecified organism Qualified Code(s): A41.9 - Sepsis, unspecified organism This patient is new to me today: No Emergency Visit: Yes ED Registration Date: 10/10/16 Care time: The patient presented to the Emergency Department on the above date and was hospitalized for further evaluation of their emergent condition. Critical Care patient: No - Discharge Referral Referred to [facility] No
== END 2016-10-13 11:18 | DRG 871 ==
LOC: FER 08:10 → FM/S 10:50
PROVIDERS: ADMIT Internal Medicine; ATTEND Nurse Practitioner Family
DX: A41.9 Sepsis, unspecified organism (principal); G92 Toxic encephalopathy; N39.0 Urinary tract infection, site not specified; F03.90 Unspecified dementia, unspecified severity, without behavioral disturbance, psychotic disturbance, mood disturbance, and anxiety; D64.9 Anemia, unspecified; I10 Essential (primary) hypertension; B95.7 Other staphylococcus as the cause of diseases classified elsewhere; R00.1 Bradycardia, unspecified
CPT/HCPCS: 36415; 70450-TC; 71010-TC; 80053; 81003; 81015; 82550; 82553; 82728; 83540; 83550; 83605; 83690; 83735; 84100; 84484; 85025; 85027; 85044; 87040; 87086; 87186; 87254; 87804; 93005; 97116-GP; 97161-GP; 99285-25; J1644; J2794